=== PATIENT | female | born 1990 ===

== ENCOUNTER 2021-06-28 10:25 | Outpatient (CLI) | payer OTHER ==
[2021-06-28 11:12] LABS: % Iron Saturation 17.74 %; Alanine Aminotransferase 16 units/L (7-56); Albumin 4.5 g/dL (3.9-5); BUN/Creatinine Ratio 20; Blood Urea Nitrogen 14 mg/dL (7-17); Calcium 9.4 mg/dL (8.4-10.2); Chol/HDL Ratio 4.02 %; HDL Cholesterol 49 mg/dL (40-59); Hemolysis Index 10; Iron 55 ug/dL (37-170); LDL Cholesterol,Direct 133 mg/dL (50-130); Total Iron Binding Capacity 310 mcg/dL (250-450)
[2021-06-28 11:19] LABS: Basophils # (Auto) 0.1 K/mm3 (0.0-0.1); Eosinophils # (Auto) 0.1 K/mm3 (0.0-0.4); Eosinophils % (Auto) 1.9 % (0.0-4.3); Hematocrit 38.3 % (30.3-42.9); Hemoglobin 13.1 gm/dl (10.1-14.3); Lymphocytes % (Auto) 39.2 % (13.4-35.0); Mean Corpuscular HGB Conc 34 % (30-34); Mean Corpuscular Volume 89 fl (79-97); Monocytes # (Auto) 0.5 K/mm3 (0.0-0.8); Monocytes % (Auto) 6.4 % (0.0-7.3); Platelet Count 332 K/mm3 (140-440); Red Blood Count 4.28 M/mm3 (3.65-5.03); Red Cell Distribution Width 13.3 % (13.2-15.2)
== END 2021-06-28 10:26 | disposition home or self-care (01) ==
LOC: LAB 10:25
PROVIDERS: ATTEND Surgery
DX: Z01.812 Encounter for preprocedural laboratory examination (principal); Z13.1 Encounter for screening for diabetes mellitus; K30 Functional dyspepsia; E66.01 Morbid (severe) obesity due to excess calories; E55.9 Vitamin D deficiency, unspecified
CPT/HCPCS: 36415; 80053; 80061; 82306; 82607; 82728; 83036; 83550; 84443; 85025; 85730

== ENCOUNTER 2021-07-17 07:52 | Outpatient (CLI) | payer OTHER ==
--- NOTE | 2021-07-17 12:35 | Fluoroscopy Report ---
Esophagram Indication: Obesity, planned gastric sleeve surgery.. Technique: Single and double contrast barium technique utilized to evaluate the esophagus. Findings: Initial airborne operations radiograph was performed. Small amount of thin barium was swallowed and no ev idence of aspiration was identified. Rapid sequence fluoroscopic evaluation the cervical esophagus wa s performed in the lateral and frontal positioning. Patient was placed in the LPO positioning and cheng ble contrast fluoroscopic evaluation of the esophagus was performed. A barium tablet was swallowed. Swallowing was normal. No mucosal irregularity, mass, mass effect, or critical stenosis. There were no abnormal tertiary c ontractions as seen with dysmotility. No gastroesophageal reflux. No hiatal hernia. Barium tablet pas sed into the stomach without delay. Impression: Unremarkable fluoroscopic esophagram. Fluoroscopic time: 1 minutes Number of fluoroscopic images: 37 Signer Name: Sarthak Mcduffie MD Signed: 07/17/2021 11:49 AM Workstation Name: [id number]
--- NOTE | 2021-07-17 19:20 | Electrocardiograph Report ---
[facility] Test Date: 2021-07-17 Test Time: 08:57:19 Pat Name: ELLYN PETERS Department: Room: Gender: F [place] Teacher: ALEXANDRA : 1990 Requested By: EVERETTE INFANTE Order Number: [id number] Reading MD: Kelton Ragsdale Measurements Intervals Desmet Rate: 61 P: 38 FL: 133 QRS: 63 QRSD: 91 T: 26 QT: 425 QTc: 428 Interpretive Statements Sinus rhythm No previous ECG available for comparison Electronically Signed On 07-17-2021 19:20:15 EDT by Kelton Ragsdale
--- NOTE | 2021-07-19 08:44 | Treadmill Report ---
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
--- NOTE | 2021-08-02 13:52 | Treadmill Report ---
DATE OF SERVICE: 07/17/2021 The patient underwent a stress EKG on 07/17/2021. Baseline EKG showed sinus rhythm at a rate of 64 beats per minute with minor nonspecific ST-T changes. Baseline blood pressure is 109/65. Peak blood pressure was 164/64. The patient exercised for 9 minutes and 24 seconds. Attained a maximum heart rate of 171 beats per minute, which is 91% of predicted maximal heart rate. No arrhythmia was noted. No significant EKG changes noted from baseline. FINAL IMPRESSION: 1. Good exercise tolerance. 2. Negative for angina, negative for ischemia on the EKG. 3. Appropriate blood pressure response. 4. No cardiac arrhythmia. Prognostically, this is a low risk study. TID: [id number] RECEIPT: [id number] DAVID/PETRONA
== END 2021-07-17 07:53 | disposition home or self-care (01) ==
LOC: FLUORO 07:52
PROVIDERS: ATTEND Surgery
DX: E66.01 Morbid (severe) obesity due to excess calories (principal)
CPT/HCPCS: 74220; 93005; 93017

== ENCOUNTER 2021-07-25 08:59 | Outpatient (CLI) | payer OTHER | END 2021-07-25 09:00 | disposition home or self-care (01) | LOC: PF 08:59 | PROVIDERS: ATTEND Surgery | DX: E66.01 Morbid (severe) obesity due to excess calories (principal); E66.2 Morbid (severe) obesity with alveolar hypoventilation | CPT/HCPCS: 94010; 94726; 94729 ==

== ENCOUNTER 2021-07-27 12:19 | Outpatient (CLI) | payer OTHER | END 2021-07-27 12:20 | disposition home or self-care (01) | LOC: SLR 12:19 | PROVIDERS: ATTEND Surgery | DX: G47.30 Sleep apnea, unspecified (principal) | CPT/HCPCS: 95810 ==

== ENCOUNTER 2021-08-21 06:28 | Day surgery (SDC) | payer OTHER ==
[2021-08-21] MEDS ORDERED: SODIUM CHLORIDE 0.9% 1000 ML 1,000 ML IV SCH (07:00)
--- NOTE | 2021-08-21 07:37 | Anesthesia Consultation ---
Anesthesia Consult and Med Hx Date of service: 08/21/21 - Airway Anesthetic Teeth Evaluation: Good ROM Head & Neck: Adequate Mental/Hyoid Distance: Adequate Mallampati Class: Class I Intubation Access Assessment: Good - Pulmonary Exam CTA: Yes - Cardiac Exam Cardiac Exam: RRR - Pre-Operative Health Status ASA Pre-Surgery Classification: ASA2 Proposed Anesthetic Plan: MAC - Pulmonary Hx Smoking: Yes - Cardiovascular System Hx Hypertension: Yes - Central Nervous System Hx Psychiatric Problems: No - Other Systems Hx Cancer: No Hx Obesity: Yes
--- NOTE | 2021-08-21 07:38 | Anesthesia Day of Surgery ---
Anesthesia Day of Surgery - Day of Surgery Patient Examined: Yes Patient H&P Reviewed: Yes Patient is NPO: Yes
[2021-08-21] MEDS ORDERED: LIDOCAINE MPF (2%) 20 MG/1 ML VIAL 5 ML ONE (08:09)
[2021-08-21] MEDS ORDERED: MIDAZOLAM 2 MG/2 ML INJ ONE (08:09)
[2021-08-21] MEDS ORDERED: propofoL 200 MG/20 ML VIAL IV ONE (08:10)
--- NOTE | 2021-08-21 08:51 | Discharge Summary ---
Providers - Providers Date of Admission: 08/21/2021 Date of discharge: 08/21/21 Attending physician: EVERETTE INFANTE MD Primary care physician: REINALDO CARLSON Hospitalization Reason for admission: gerd work up Condition: Good Procedures: egd with bx Hospital course: Pt presented for a pre-op EGD as part of planning for up coming surgery. Procedure was uneventful and pt recovered well and was discharged to home. Disposition: 01 HOME / SELF CARE / HOMELESS Final Discharge Diagnosis (Prints w/discharge instructions): gerd, morbid obesity Core Measure Documentation - Palliative Care Palliative Care/ Comfort Measures: Not Applicable - Core Measures Any of the following diagnoses?: none Exam - Physical Exam Narrative exam: unchanged from pre-op Plan Activity: advance as tolerated Diet: low carbohydrate Follow up with: REINALDO CARLSON MD [Primary Care Provider] - 7 Days
--- NOTE | 2021-08-21 08:52 | Operative Report ---
Operative Report Operative Report: DATE: 08/21/2021 SURGERY: Upper endoscopy. SURGEON: Anastacia Kim M.D. PROCEDURE: EGD with biopsy PRE OP DX: morbid obesity, GERD POST OP DX: morbid obesity, GERD, hiatal hernia TYPE OF ANESTHESIA: MAC. ESTIMATED BLOOD LOSS: None. COMPLICATIONS: None. SPECIMENS REMOVED: antral biopsy FINDINGS: 1. Small hiatal hernia. 2. Otherwise, normal esophagus, stomach and first portion of duodenum. INDICATIONS:INDICATION FOR PROCEDURE: Patient is a 31-year-old female with a long history of morbid obesity. She is planned to have a weight loss procedure and is here for preoperative planning EGD. PROCEDURE DETAILS: After consent was reviewed, patient was taken back to the operating room where patient was placed in the left lateral decubitus position and a bite block was placed in the mouth. After a time-out was called, MAC anesthesia was initiated. I then passed the endoscope into her oropharynx, into her esophagus, visualized the entire esophagus, which was all within normal limits. Z-line was noted to about 35cm from incisors. I then visualized the stomach and the first portion of the duodenum and there were no abnormalities I could clearly visualize except for antral gastritis. A cold forceps biopsy of the antrum was taken and will be sent to pathology to evaluate for H.pylori. I then retroflexed the scope in the stomach and visualized the hiatus and I could see a small hiatal hernia. I then desufflated the stomach and removed the endoscope. Patient tolerated procedure well and was transferred to recovery room in good and stable condition.
[2021-08-21 10:04] VITALS: BP 116/64
--- NOTE | 2021-08-21 12:18 | Post Anesthesia Evaluation ---
- Post Anesthesia Evaluation Patient Participated: Yes Airway Patent: Yes Stable Respiratory Function: Yes Nausea/Vomiting: No Temp > 96.8F: Yes Pain Manageable: Yes Adequeate Hydration: Yes Anesthesia Complications: No Block Receding Appropriately: Not Applicable Patient on Ventilator: No
== END 2021-08-21 10:50 | disposition home or self-care (01) ==
LOC: GIO 06:28
PROVIDERS: ATTEND Surgery
DX: E66.01 Morbid (severe) obesity due to excess calories (principal); K21.9 Gastro-esophageal reflux disease without esophagitis; K44.9 Diaphragmatic hernia without obstruction or gangrene; K31.89 Other diseases of stomach and duodenum; K29.50 Unspecified chronic gastritis without bleeding; I10 Essential (primary) hypertension; G47.30 Sleep apnea, unspecified; Z79.899 Other long term (current) drug therapy; Z98.890 Other specified postprocedural states; Z72.89 Other problems related to lifestyle; Z68.41 Body mass index [BMI] 40.0-44.9, adult
CPT/HCPCS: 43239; 88305; 88342; J2250; J2704; J3490; J7030; J7120; Q0162